=== PATIENT | male | born 1985 | race American Indian/Alaskan Native ===

== ENCOUNTER 2018-01-17 12:55 | Emergency (ER) | payer BC ==
[2018-01-17] MEDS ORDERED: Sodium Chloride 0.9% 1,000 ML IV SCH (13:15)
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
[2018-01-17] MEDS: Sodium Chloride 0.9% 10 ML Syringe FLUSH ONE (13:28)
[2018-01-17] MEDS: Iopamidol 612 MG/ML 150 ML Bottle IVPUSH ONE (13:28)
--- NOTE | 2018-01-17 14:21 | CT ---
CT chest Technique: Multiple axial sections through the chest were obtained. Intravenous contrast was utilized. Comparison: No prior chest imaging. Findings: Mediastinum and hilar regions are unremarkable. No pericardial thickening is seen. No axillary adenopathy is noted. Lungs are clear with no pulmonary contusion. No pleural effusions or pneumothorax is seen. Bone window settings show no discrete rib fracture. Lateral reconstructed view shows the sternum to appear intact. Impression: 1. No abnormality is seen on CT study of the chest. CT abdomen and pelvis Technique: Multiple axial sections were obtained from above the dome of the diaphragm inferiorly through the pubic symphysis. Intravenous contrast was utilized. No oral contrast has been given. Delayed images were obtained through the bladder. Comparison: No prior abdominal imaging. Findings: Liver shows no focal parenchymal abnormality. Gallbladder contains no calcified gallstones. Spleen appears within normal limits. Adrenal glands show no nodule. Pancreas appears normal. Kidneys show symmetric contrast enhancement without abnormality. Aorta shows no aneurysmal dilatation. No retroperitoneal adenopathy or mesenteric abnormalities are seen. No pelvic mass or adenopathy is seen. Delayed images show contrast within the distal ureters and bladder. Bone window settings were reviewed which show no discrete pelvic fracture. Impression: 1. No abnormality is identified on CT study of the abdomen and pelvis. Diagnostic code #1
--- NOTE | 2018-01-17 14:21 | CT ---
CT lumbar spine Technique: Multiple axial sections through the lumbar spine were obtained. Reconstructed coronal and sagittal images were reviewed. Comparison: No previous lumbar spine imaging. Findings: Vertebral body heights and disc spaces are maintained. Sacroiliac joints are within normal limits. No fracture is seen. No bony central or bony neural foraminal stenosis is seen. Posterior discs are preserved. No traumatic disc herniation is seen. No abnormal subluxation is identified. Impression: 1. No abnormality is identified on CT study of the lumbar spine. Diagnostic code #1
--- NOTE | 2018-01-17 14:21 | CT ---
Head CT Technique: Multiple axial sections through the brain were obtained. Intravenous contrast was not utilized. Comparison: No prior intracranial imaging. Findings: Ventricles along with basal cisterns and sulci over the convexities are within normal limits for the patient's age. No abnormal parenchymal densities are seen. No evidence of intracranial hemorrhage. No midline shift or mass effect is seen. Bone window settings were reviewed which show no acute calvarial abnormality. Visualized sinuses are clear. Incidental note of inward bowing of the medial orbital wall which is felt compatible with old fracture. Impression: 1. Nothing acute is seen on noncontrast head CT exam. Diagnostic code #2
--- NOTE | 2018-01-17 14:28 | CT ---
CT thoracic spine Technique: Multiple axial sections through the thoracic spine were obtained. Reconstructed coronal and sagittal images were obtained. Findings: Slight disc space narrowing and minimal endplate osteophytes are seen within the upper thoracic spine at T2-T3 and T3-T4. Other disc spaces are maintained. Minimal anterior osteophytes also noted at T1-T2. Slight disc bulging with minimal calcification within the posterior anulus noted at T2-T3. Vertebral body heights are maintained. No fracture is identified. No bony central or bony neural foraminal stenosis is seen. Impression: 1. Minimal degenerative change. 2. Nothing acute is seen on CT study of the thoracic spine. Diagnostic code #2
--- NOTE | 2018-01-17 15:39 | CR ---
Left shoulder: Three views of the left shoulder were obtained. Comparison: No previous shoulder study. Glenohumeral and acromioclavicular joints are unremarkable. No fracture, dislocation or other bony abnormality is seen. Impression: 1. No abnormality is seen on left shoulder study. Diagnostic code #1
[2018-01-17 18:18] VITALS: BP 115/75
== END 2018-01-17 15:41 | disposition home or self-care (01) ==
LOC: JD.ED 12:55
DX: S46.912A Strain of unspecified muscle, fascia and tendon at shoulder and upper arm level, left arm, initial encounter (principal); S39.012A Strain of muscle, fascia and tendon of lower back, initial encounter; S51.812A Laceration without foreign body of left forearm, initial encounter; S00.03XA Contusion of scalp, initial encounter; S80.01XA Contusion of right knee, initial encounter; S40.212A Abrasion of left shoulder, initial encounter; Z89.022 Acquired absence of left finger(s); V48.5XXA Car driver injured in noncollision transport accident in traffic accident, initial encounter
CPT/HCPCS: 36415; 70450; 70450-26; 71260; 71260-26; 72128; 72128-26; 72131; 72131-26; 73030-26-LT; 73030-LT; 74177; 74177-26; 80053; 85007; 85027; 99285-25; G0480; J7050; Q9967

== ENCOUNTER 2021-02-04 20:17 | Emergency (ER) | payer BC, OTHER ==
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
[2021-02-04] MEDS ORDERED: Lactated Ringers 1,000 ML IV ONE (21:16)
[2021-02-04] MEDS ORDERED: Ondansetron 4 MG Tab.DIS PO ONE (21:16)
[2021-02-05] MEDS ORDERED: Lidocaine 1% 10 ML MDV INJECT ONE (01:16)
[2021-02-05] MEDS ORDERED: Diphtheria,Pertussis(Acell),Tetanus Vaccine 0.5 ML Syringe IM ONE (01:16)
[2021-02-05] MEDS ORDERED: fentaNYL 100 MCG/2 ML SDV IVPUSH ONE ×2 (01:51→03:30)
[2021-02-05] MEDS ORDERED: Lactated Ringers 1,000 ML IV SCH (03:00)
[2021-02-05] MEDS ORDERED: Iopamidol 612 MG/ML 150 ML Bottle IVPUSH ONE (03:10)
[2021-02-05] MEDS ORDERED: Sodium Chloride 0.9% 100 ML IV SCH (03:15)
[2021-02-05] MEDS ORDERED: Sodium Chloride 0.9% 10 ML Syringe FLUSH SCH (03:15)
[2021-02-05 04:55] VITALS: BP 110/64; PULSE 64
--- NOTE | 2021-02-05 07:25 | CR ---
Right femur: AP and lateral views of the right femur were obtained. Comparison: No prior femur study is available. Lucency with sclerotic rim is noted within the intertrochanteric region of the right femur which has a benign appearance. On the lateral view there is partial visualization of the proximal tibia which shows a lucent line anteriorly, this is suspicious for a proximal tibial fracture. Femur appears intact with no acute fracture or other abnormality. Impression: 1. Findings suspicious for a small fracture involving the anterior and proximal tibia. 2. Right femur study is otherwise unremarkable. Diagnostic code #3 I agree with preliminary report from [facility], finalized on 02/05/21, 2:18 AM CDT, code 1
--- NOTE | 2021-02-05 07:27 | CR ---
Right knee: AP and crosstable lateral views of the right knee were obtained. Comparison: No prior knee study is available. Prior femur study performed on the same day is available. Minimal lucency is noted within the anterior proximal tibia on the lateral view which is suspicious for fracture. Small joint effusion is seen. Medial and lateral joint compartments are maintained in height. No additional abnormality is appreciated. Impression: 1. Findings compatible with small fracture within the anterior and proximal tibia with joint effusion. Diagnostic code #3 I disagree with preliminary report from [facility], finalized on 02/05/21, 2:18 AM CDT, code 2
--- NOTE | 2021-02-05 07:27 | CR ---
Right tibia and fibula: AP and lateral views of the right tibia and fibula were obtained. Comparison: Prior femur and knee study performed on the same day. Fracture is noted within the anterior and superior tibia. Old well corticated bony density is noted off the inferior fibula. No additional fracture or other bony abnormality is appreciated. Impression: 1. Small nondisplaced fracture within the anterior and superior tibia. 2. No other acute abnormality is appreciated. Diagnostic code #3 I agree with preliminary report from [facility], finalized on 02/05/21, 2:19 AM CDT, code 1
--- NOTE | 2021-02-05 07:38 | CT ---
CT cervical spine Technique: Multiple axial sections through the cervical spine were obtained. Reconstructed coronal and sagittal images were obtained. Comparison: No prior cervical spine imaging is available. Findings: Mild disc space narrowing is seen at C2-3 and C3-4. Anterior osteophytes are noted within the upper thoracic spine. Minimal anterior osteophytes are noted at C5-6. Very minimal posterior spurring is noted at C5-6 and C6-7. Neural foramina and central canal are maintained. No acute fracture or subluxation is seen. Impression: 1. Mild degenerative change as noted above. 2. No acute fracture or subluxation is seen. Diagnostic code #2 I agree with preliminary report from [facility], finalized on 02/05/21, 2:37 AM CDT, code 1
--- NOTE | 2021-02-05 07:40 | CT ---
CT chest Technique: Multiple axial sections through the chest were obtained. Intravenous contrast was utilized. Reconstructed coronal and sagittal images were obtained. Comparison: Prior CT chest study of 01/17/18. Findings: No pericardial thickening is seen. Thoracic aorta shows no aneurysm. Mediastinum and hilar regions show no adenopathy or mass. Slight dependent atelectasis is noted posteriorly within both lungs. Lungs otherwise are clear. No pneumothorax is seen. No pleural effusions are seen. Bone window settings were reviewed which show no acute osseous abnormality. Impression: 1. Nothing acute is seen on contrast enhanced chest CT. Diagnostic code #1 I agree with preliminary report from [facility], finalized on 02/05/21, 2:16 AM CDT, code 1 CT abdomen and pelvis Technique: Multiple axial sections were obtained from above the dome of the diaphragm inferiorly to the pubic symphysis. Intravenous contrast was utilized. Delayed images were obtained through the bladder. Reconstructed coronal and sagittal images were also obtained. Comparison: Prior CT abdomen and pelvis study of 01/17/18. Findings: Low density lesion is noted within the inferior right lobe of the liver which does not appear as a simple cyst and measures 1.0 cm. This is believed to be present on prior exam. No additional abnormality is appreciated within the liver. Spleen size is normal. Adrenal glands show no nodule. Pancreas is within normal limits. Gallbladder contains no calcified gallstones. Kidneys show symmetric contrast enhancement. Delayed images shows contrast excretion from both kidneys into nondilated ureters as well as contrast noted within the bladder. Abdominal aorta shows no aneurysm. No retroperitoneal adenopathy or mesenteric abnormalities are seen. Appendix is seen which is normal in size. No pelvic mass or adenopathy is appreciated. Bone window settings were reviewed which shows no acute osseous abnormality. Impression: 1. Low-density lesion within the right lobe of the liver believed to be stable from prior CT exam. 2. Nothing acute is appreciated on CT study of the abdomen and pelvis. Diagnostic code #2 I agree with preliminary report from [facility], finalized on 02/04/21, 2:17 AM CDT, code 1
--- NOTE | 2021-02-05 07:45 | CT ---
Head CT Technique: Multiple axial sections through the brain were obtained. Reconstructed coronal and sagittal images were obtained. Comparison: Prior head CT study of 01/17/18. Findings: Small subdural hematoma is seen within the left frontal and parietal regions. This measures around 4.5 mm in size. Minimal blood is seen to extend along the interhemispheric falx anteriorly. I do not see a definite parenchymal hemorrhage. Midline shift is seen by about 5 mm. Bone window settings were reviewed. Mild mucosal thickening is seen within the right maxillary sinus. Deformity of the nasal bone is seen compatible with old fracture. Bowing of the medial left orbital wall is seen compatible with old injury. Nothing acute is seen within the mastoid sinuses. No acute calvarial abnormality is appreciated. Impression: 1. Left-sided subdural hematoma within the left frontal and parietal regions causing midline shift of about 5 mm. 2. Other old findings as noted above. No skull fracture is seen. No discrete parenchymal hemorrhages noted. Diagnostic code #5 I agree with preliminary report from [facility], finalized on 02/05/21, 2:35 AM CDT, code 1
--- NOTE | 2021-02-05 08:06 | CT ---
CT thoracic spine Technique: Multiple axial sections were obtained through the thoracic spine. Reconstructed coronal and sagittal images were obtained. Comparison: Prior CT thoracic spine study of 01/17/18. Findings: Minimal spurring is noted within the upper thoracic spine off the anterior endplates. Vertebral body heights are maintained. No central canal stenosis or neural foraminal stenosis is seen. No fracture or subluxation is seen. Impression: 1. Minimal degenerative change. 2. No acute fracture or subluxation is seen on CT study of the thoracic spine. Diagnostic code #2 I agree with preliminary report from [facility], finalized on 02/05/21, 2:15 AM CDT, code 1
--- NOTE | 2021-02-07 09:39 | CT ---
CT right knee Technique: Multiple axial sections through the right knee were obtained. Reconstructed coronal and sagittal images were obtained. Intravenous contrast was not utilized. Comparison: Prior plain film study performed earlier on the same day. Findings: Fracture is seen within the anterior and superior tibia. Fracture extends intra-articular. Fracture is mildly displaced with fracture line measuring about 3.9 mm. Joint effusion is present. No additional fracture or other abnormality is appreciated. Impression: 1. Mildly displaced fracture within the anterior and proximal tibia. 2. Joint effusion. Diagnostic code #3 I agree with preliminary report from [facility], finalized on 02/05/21, 4:03 AM CDT, code 1 MTDD
== END 2021-02-05 03:30 | disposition home or self-care (01) ==
LOC: JD.ED 20:17
DX: S06.5X0A Traumatic subdural hemorrhage without loss of consciousness, initial encounter (principal); S01.511A Laceration without foreign body of lip, initial encounter; S00.81XA Abrasion of other part of head, initial encounter; S30.811A Abrasion of abdominal wall, initial encounter; S89.91XA Unspecified injury of right lower leg, initial encounter; Z72.0 Tobacco use; Z23 Encounter for immunization; Z88.8 Allergy status to other drugs, medicaments and biological substances; Z20.822 Contact with and (suspected) exposure to COVID-19; W17.89XA Other fall from one level to another, initial encounter; Y92.828 Other wilderness area as the place of occurrence of the external cause
CPT/HCPCS: 36415; 70450; 71260; 72125; 72129; 73552; 73560; 73590; 73700; 74177; 80053; 80306; 80307; 81001; 84484; 85025; 85610; 85730; 87635; 90471; 90715; 93005; 96374; 96376; 99285; A9270; J3010; J7120; Q9967; 93010; 99284; U0002